=== PATIENT | female | born 1930 | race Caucasian/White ===

== ENCOUNTER → 2017-01-19 | Outpatient (CLI) | payer MEDICARE ==
[2017-01-19 13:35] LABS: HEMOGLOBIN 10.5 gm/dl (12.3-15.3); RED BLOOD COUNT 3.66 M/UL (4.00-5.10); WHITE BLOOD COUNT 7.5 K/UL (4.5-11.0)
== END ==
LOC: LAB 12:47
PROVIDERS: Internal Medicine Nephrology
DX: N18.4 Chronic kidney disease, stage 4 (severe) (principal)
CPT/HCPCS: 36415; 80069; 82728; 83540; 83550; 83970; 84466; 85027

== ENCOUNTER → 2017-01-22 | Outpatient (CLI) | payer MEDICARE | LOC: LAB 12:45 | DX: N18.4 Chronic kidney disease, stage 4 (severe) (principal) | CPT/HCPCS: 36415; 80069 ==

== ENCOUNTER → 2017-04-17 | Outpatient (CLI) | payer MEDICARE ==
[2017-04-17 13:41] LABS: HEMOGLOBIN 10.8 gm/dl (12.3-15.3); RED BLOOD COUNT 3.86 M/UL (4.00-5.10); WHITE BLOOD COUNT 5.9 K/UL (4.5-11.0)
== END ==
LOC: LAB 12:48
PROVIDERS: Internal Medicine Nephrology
DX: N18.4 Chronic kidney disease, stage 4 (severe) (principal)
CPT/HCPCS: 36415; 80069; 85027